=== PATIENT | female | born 2000 | race Caucasian/White ===

== ENCOUNTER 2024-11-11 19:03 | Emergency (ER) | payer MEDICAID | END 2024-11-11 23:04 | disposition home or self-care (01) | LOC: JD.ED 19:03 | DX: M70.871 Other soft tissue disorders related to use, overuse and pressure, right ankle and foot (principal) | CPT/HCPCS: 99283 ==

== ENCOUNTER 2024-12-20 09:40 | Inpatient (IN) | payer MEDICAID ==
[2024-12-20] MEDS ORDERED: Lidocaine 1% 50 ML MDV INJECT PRN (10:41)
[2024-12-20] MEDS ORDERED: Nalbuphine 10 MG/1 ML Vial IVPUSH PRN (10:41)
[2024-12-20] MEDS ORDERED: Ondansetron 4 MG/2 ML SDV IVPUSH PRN (10:41)
[2024-12-20] MEDS ORDERED: Oxytocin/0.9 % Sodium Chloride 30 UNIT/500 ML BAG IV SCH (10:45)
[2024-12-20 11:06] LABS: BASOPHILS PERCENT AUTO 0.4 % (0.0-1.0); EOSINOPHILS ABSOLUTE AUTO 0.2 K/mm3 (0.0-0.4); EOSINOPHILS PERCENT AUTO 1.7 % (0.0-6.0); HEMATOCRIT 37.6 % (37.0-47.0); HEMOGLOBIN 12.7 gm/dl (12.0-16.0); IMMATURE GRAN ABSOLUTE AUTO 0.04 K/mm3 (0.00-0.05); IMMATURE GRAN PERCENT AUTO 0.4 % (0.0-0.4); LYMPHOCYTES ABSOLUTE AUTO 1.2 K/mm3 (1.0-4.8); LYMPHOCYTES PERCENT AUTO 12.5 % (24.0-44.0); MEAN CORPUSCULAR HEMOGLOBIN 30.2 pg (28.0-32.0); MEAN CORPUSCULAR HGB CONC 33.8 g/dl (32.0-36.0); MEAN CORPUSCULAR VOLUME 89.3 fl (83.0-99.0); MEAN PLATELET VOLUME 10.3 fl (9.4-12.3); MONOCYTES ABSOLUTE AUTO 0.7 K/mm3 (0.0-0.8); MONOCYTES PERCENT AUTO 7.1 % (0.0-8.0); NEUTROPHILS ABSOLUTE AUTO 7.6 K/mm3 (1.8-7.7); NEUTROPHILS PERCENT AUTO 77.9 % (41.0-71.0); PLATELET COUNT,PLT 254 K/mm3 (150-400); RED BLOOD CELL COUNT 4.21 M/mm3 (4.10-5.30); WHITE BLOOD CELL COUNT,WBC 9.74 K/mm3 (3.9-11.3)
[2024-12-20] MEDS: Lactated Ringers 1,000 ML IV SCH (11:57)
[2024-12-20] MEDS: Oxytocin/0.9 % Sodium Chloride 30 UNIT/500 ML BAG IV SCH (11:58)
[2024-12-20] MEDS ORDERED: diphenhydrAMINE 50 MG/ML SDV IVPUSH PRN (12:29)
[2024-12-20] MEDS ORDERED: ePHEDrine 50 MG/ML SDV IVPUSH PRN (12:29)
[2024-12-20] MEDS: Bupivacaine/fentaNYL/NS 100 ML Bag EPIDUR PRN (15:36)
[2024-12-20] MEDS ORDERED: Sennosides 8.6 MG Tab PO PRN (18:49)
[2024-12-20] MEDS ORDERED: Simethicone 80 MG Tab.Chew PO PRN (18:49)
[2024-12-20] MEDS: Ibuprofen 800 MG Tab PO SCH (19:43)
[2024-12-20] MEDS: Acetaminophen 325 MG Tab PO PRN (19:43)
[2024-12-20] MEDS: Witch Hazel Medicated Pads 40/Jar TOP PRN (19:45)
[2024-12-20] MEDS: Benzocaine/Menthol 20%-0.5% Spray 78 GM Cannister TOP PRN (19:46)
[2024-12-21 05:28] LABS: MEAN CORPUSCULAR HEMOGLOBIN 30.7 pg (28.0-32.0); MEAN CORPUSCULAR HGB CONC 34.3 g/dl (32.0-36.0); MEAN CORPUSCULAR VOLUME 89.6 fl (83.0-99.0); MEAN PLATELET VOLUME 10.5 fl (9.4-12.3); PLATELET COUNT,PLT 239 K/mm3 (150-400); RED BLOOD CELL COUNT 3.35 M/mm3 (4.10-5.30)
[2024-12-21 05:29] LABS: HEMOGLOBIN 10.3 gm/dl (12.0-16.0)
[2024-12-21] MEDS: Measles, Mumps & Rubella Vaccine 0.5 ML SDV SUBCUT ONE (18:16)
== END 2024-12-21 18:40 | disposition home or self-care (01) | DRG 807 ==
LOC: JD.OBCHECK 09:40 → JD.OB 09:41 → JD.OBCHECK 10:41 → OBSVTOIN 18:04 → JD.OB 18:05
PROVIDERS: ADMIT Obstetrics & Gynecology; ATTEND Obstetrics & Gynecology
PROC: 10D07Z6 Extraction of Products of Conception, Vacuum, Via Natural or Artificial Opening (ICD-10-PCS; principal; 2024-12-20)
PROC: 0HQ9XZZ Repair Perineum Skin, External Approach (ICD-10-PCS; 2024-12-20)
PROC: 3E033VJ Introduction of Other Hormone into Peripheral Vein, Percutaneous Approach (ICD-10-PCS; 2024-12-20)
PROC: 3E0R3BZ Introduction of Anesthetic Agent into Spinal Canal, Percutaneous Approach (ICD-10-PCS; 2024-12-20)
PROC: 00HU33Z Insertion of Infusion Device into Spinal Canal, Percutaneous Approach (ICD-10-PCS; 2024-12-20)
DX: O42.02 Full-term premature rupture of membranes, onset of labor within 24 hours of rupture (principal); Z37.0 Single live birth; Z3A.38 38 weeks gestation of pregnancy; O32.1XX0 Maternal care for breech presentation, not applicable or unspecified; O34.211 Maternal care for low transverse scar from previous cesarean delivery; O70.0 First degree perineal laceration during delivery
CPT/HCPCS: 36415; 51701; 59025; 59409; 84112; 85025; 85027; 86592; 86850; 86900; 86901; 90707; A9270-GY; C1758; J3490; J7120; J7999

== ENCOUNTER 2025-04-14 20:19 | Emergency (ER) | payer MEDICAID ==
[2025-04-14] MEDS: Lidocaine 1% 10 ML MDV INJECT ONE (22:07)
== END 2025-04-14 22:15 | disposition home or self-care (01) ==
LOC: JD.ED 20:19
DX: S61.411A Laceration without foreign body of right hand, initial encounter (principal); Z79.899 Other long term (current) drug therapy; W45.8XXA Other foreign body or object entering through skin, initial encounter
CPT/HCPCS: 12001; 99282; J2003

== ENCOUNTER 2025-05-14 16:36 | Emergency (ER) | payer MEDICAID ==
[2025-05-14] MEDS: Ondansetron 4 MG/2 ML SDV IVPUSH ONE ×2 (17:12→17:22)
[2025-05-14 17:27] LABS: BASOPHILS ABSOLUTE AUTO 0.0 K/mm3 (0.0-0.2); BASOPHILS PERCENT AUTO 0.3 % (0.0-1.0); EOSINOPHILS ABSOLUTE AUTO 0.0 K/mm3 (0.0-0.4); EOSINOPHILS PERCENT AUTO 0.3 % (0.0-6.0); IMMATURE GRAN ABSOLUTE AUTO 0.04 K/mm3 (0.00-0.05); IMMATURE GRAN PERCENT AUTO 0.3 % (0.0-0.4); LYMPHOCYTES ABSOLUTE AUTO 0.3 K/mm3 (1.0-4.8); LYMPHOCYTES PERCENT AUTO 2.6 % (24.0-44.0); MEAN PLATELET VOLUME 10.9 fl (9.4-12.3); MONOCYTES ABSOLUTE AUTO 0.6 K/mm3 (0.0-0.8); MONOCYTES PERCENT AUTO 4.9 % (0.0-8.0); NEUTROPHILS ABSOLUTE AUTO 10.9 K/mm3 (1.8-7.7); NEUTROPHILS PERCENT AUTO 91.6 % (41.0-71.0); NRBC ABSOLUTE 0.00 (0.00-0.02); NRBC PERCENT 0.0 % (0.0-0.2); PLATELET COUNT,PLT 237 K/mm3 (150-400); RED BLOOD CELL COUNT 5.56 M/mm3 (4.10-5.30); WHITE BLOOD CELL COUNT,WBC 11.86 K/mm3 (3.9-11.3)
[2025-05-14 17:59] LABS: A/G RATIO 1.0 (1-2); ALANINE AMINOTRANSFERASE,ALT 24.0 U/L (14-59); ASPARTATE AMNIOTRANSFERASE,AST 21.0 U/L (15-37); BILIRUBIN TOTAL 0.9 mg/dL (0.2-1.0); BLOOD UREA NITROGEN,BUN 11.0 mg/dL (7-18); CARBON DIOXIDE,CO2 25.0 mEq/L (21-32); CHLORIDE,CL 100.0 mEq/L (98-107); CREATINE KINASE,CK 53.0 U/L (26-192); CREATININE 0.7 mg/dL (0.55-1.02); EST CRCL DRUG DOSING (CG) 113.01 mL/min; ESTIMATED GFR 121.0 mL/min (>60); GLUCOSE RANDOM 76.0 mg/dL (70-99); POTASSIUM,K 3.8 mEq/L (3.5-5.1); PROTEIN TOTAL,TP 8.4 g/dl (6.4-8.2); SODIUM,NA 137.0 mEq/L (136-145)
== END 2025-05-14 19:05 | disposition home or self-care (01) ==
LOC: JD.ED 16:36
DX: R11.2 Nausea with vomiting, unspecified (principal); Z79.899 Other long term (current) drug therapy
CPT/HCPCS: 36415; 80053; 82550; 83690; 83735; 85025; 96361; 96374; 96375; 99284; J2405; J2470; J7030; 99283